=== PATIENT | male | born 1955 | race African-American/Black ===

== ENCOUNTER 2021-05-16 10:43 | Emergency (ER) | payer MEDICARE ==
[2021-05-16 10:48] VITALS: RESP 18; TEMP 97.5
[2021-05-16] MEDS ORDERED: HYDROmorphone 0.5 MG/0.5 ML SYRINGE IVP STA ×2 (10:55→12:31)
[2021-05-16] MEDS ORDERED: SODIUM CHLORIDE 0.9% 1,000 ML IV STA (10:55)
[2021-05-16] MEDS ORDERED: ONDANSETRON 4 MG/2 ML VIAL IVP STA (10:55)
[2021-05-16] MEDS ORDERED: KETOROLAC 15 MG/ML 1 ML VIAL IVP STA ×2 (10:55→12:31)
--- NOTE | 2021-05-16 11:00 | ED ---
Abdominal Pain HPI - General Chief Complaint: Abdominal Pain Stated Complaint: Nausea, Vomiting Time Seen by Provider: 05/16/21 10:49 Source: patient, RN notes reviewed Mode of arrival: ambulatory Limitations: no limitations - History of Present Illness Initial Comments: 65-year-old male presents emergency Department with chief complaint left flank pain. Patient states a sudden onset of pain this morning. Patient states is very nauseated has had multiple episodes of emesis. Patient states that the makes the pain feel better or worse she states she feels that he constantly has to move. He denies any chest pain or shortness of breath no prior abdominal surgeries no history of diverticulitis no dysuria no hematuria no diarrhea no constipation. - Related Data Home Medications Medication Instructions Recorded Confirmed Atorvastatin Calcium [Lipitor] 20 mg PO HS 05/16/21 05/16/21 Famotidine [Pepcid AC] 10 mg PO BID 05/16/21 05/16/21 metFORMIN HCL [Glucophage] 500 mg PO BID 05/16/21 05/16/21 Previous Rx's Medication Instructions Recorded Ketorolac [Toradol] 10 mg PO Q8HR #15 tab 05/16/21 Ondansetron Odt [Zofran Odt] 4 mg PO Q8HR PRN #10 tab 05/16/21 Tamsulosin [Flomax] 0.4 mg PO DAILY #7 cap 05/16/21 Allergies Allergy/AdvReac Type Severity Reaction Status Date / Time No Known Allergies Allergy Verified 05/16/21 11:46 Review of Systems ROS Statement: Those systems with pertinent positive or pertinent negative responses have been documented in the HPI. ROS Other: All systems not noted in ROS Statement are negative. Past Medical History Past Medical History: Diabetes Mellitus, Hypertension History of Any Multi-Drug Resistant Organisms: None Reported Past Surgical History: No Surgical Hx Reported Past Psychological History: No Psychological Hx Reported Smoking Status: Never smoker Past Alcohol Use History: None Reported Past Drug Use History: Marijuana General Exam Limitations: no limitations General appearance: alert, in no apparent distress Head exam: Present: atraumatic, normocephalic, normal inspection Eye exam: Present: normal appearance, PERRL, EOMI. Absent: scleral icterus, conjunctival injection, periorbital swelling ENT exam: Present: normal exam, mucous membranes moist Neck exam: Present: normal inspection. Absent: tenderness, meningismus, lymphadenopathy Respiratory exam: Present: normal lung sounds bilaterally. Absent: respiratory distress, wheezes, rales, rhonchi, stridor Cardiovascular Exam: Present: regular rate, normal rhythm, normal heart sounds. Absent: systolic murmur, diastolic murmur, rubs, gallop, clicks GI/Abdominal exam: Present: soft, tenderness, normal bowel sounds. Absent: distended, guarding, rebound, rigid Back exam: Present: CVA tenderness (L). Absent: CVA tenderness (R) Neurological exam: Present: alert, oriented X3 Course Vital Signs 05/16/21 05/16/21 10:44 13:06 Temperature 97.5 F L Pulse Rate 62 68 Respiratory 18 18 Rate Blood Pressure 161/86 120/79 O2 Sat by Pulse 96 96 Oximetry Medical Decision Making - Medical Decision Making 65-year-old presented for left flank pain. Patient has evidence of kidney stone 2 mm UVJ stone. The pain is improved. Patient will be discharged with family, antiemetics, Flomax. Patient will follow-up with urology as needed and return for any worsening changes symptoms. - Lab Data Result diagrams: 05/16/21 10:59 05/16/21 10:59 Lab Results 05/16/21 05/16/21 05/16/21 Range/Units 10:59 10:59 11:55 WBC 7.0 (3.8-10.6) k/uL RBC 4.62 (4.30-5.90) m/uL Hgb 13.7 (13.0-17.5) gm/dL Hct 41.9 (39.0-53.0) % MCV 90.6 (80.0-100.0) fL MCH 29.6 (25.0-35.0) pg MCHC 32.6 (31.0-37.0) g/dL RDW 13.7 (11.5-15.5) % Plt Count 212 (150-450) k/uL MPV 7.3 Sodium 139 (137-145) mmol/L Potassium 3.7 (3.5-5.1) mmol/L Chloride 108 H (98-107) mmol/L Carbon Dioxide 24 (22-30) mmol/L Anion Gap 7 mmol/L BUN 18 (9-20) mg/dL Creatinine 1.29 H (0.66-1.25) mg/dL Est GFR (CKD-EPI)AfAm 66 (>60 ml/min/1.73 sqM) Est GFR (CKD-EPI)NonAf 57 (>60 ml/min/1.73 sqM) Glucose 139 H (74-99) mg/dL Calcium 9.6 (8.4-10.2) mg/dL Total Bilirubin 0.7 (0.2-1.3) mg/dL AST 25 (17-59) U/L ALT 24 (4-49) U/L Alkaline Phosphatase 84 (38-126) U/L Total Protein 7.9 (6.3-8.2) g/dL Albumin 4.5 (3.5-5.0) g/dL Amylase 187 H (30-110) U/L Lipase 119 (23-300) U/L Urine Color Yellow Urine Appearance Clear (Clear) Urine pH 5.0 (5.0-8.0) Ur Specific [place] 1.022 (1.001-1.035) Urine Protein Trace H (Negative) Urine Glucose (UA) Negative (Negative) Urine Ketones Negative (Negative) Urine Blood Trace H (Negative) Urine Nitrite Negative (Negative) Urine Bilirubin Negative (Negative) Urine Urobilinogen <2.0 (<2.0) mg/dL Ur Leukocyte Esterase Moderate H (Negative) Urine RBC 1 (0-5) /hpf Urine WBC 8 H (0-5) /hpf Ur Squamous Epith Cells <1 (0-4) /hpf Urine Mucus Rare H (None) /hpf Disposition Clinical Impression: Left ureteral calculus Disposition: HOME SELF-CARE Condition: Stable Instructions (If sedation given, give patient instructions): Kidney Stones (ED) Additional Instructions: Please return to the Emergency Department if symptoms worsen or any other concerns. Prescriptions: Tamsulosin [Flomax] 0.4 mg PO DAILY #7 cap Ketorolac [Toradol] 10 mg PO Q8HR #15 tab Ondansetron Odt [Zofran Odt] 4 mg PO Q8HR PRN #10 tab PRN Reason: Nausea Is patient prescribed a controlled substance at d/c from ED?: No Referrals: Ailyn Fagan MD [Primary Care Provider] - 1-2 days
[2021-05-16 11:27] LABS: Albumin 4.5 g/dL (3.5-5.0); Calcium 9.6 mg/dL (8.4-10.2); Potassium 3.7 mmol/L (3.5-5.1); Total Bilirubin 0.7 mg/dL (0.2-1.3); Total Protein 7.9 g/dL (6.3-8.2)
[2021-05-16 11:29] LABS: HCT 41.9 % (39.0-53.0); HGB 13.7 gm/dL (13.0-17.5); MCH 29.6 pg (25.0-35.0); MCHC 32.6 g/dL (31.0-37.0); MCV 90.6 fL (80.0-100.0); Mean Platelet Volume 7.3; Platelet Count 212 k/uL (150-450); RBC 4.62 m/uL (4.30-5.90); RDW 13.7 % (11.5-15.5)
--- NOTE | 2021-05-16 11:48 | CT ---
EXAMINATION TYPE: CT abdomen pelvis wo con DATE OF EXAM: 05/16/2021 COMPARISON: None available HISTORY: Left sided abdominal pain and vomiting. CT DLP: 682.2 mGycm Automated exposure control for dose reduction was used. TECHNIQUE: Helical acquisition of images was performed from the lung bases through the pelvis. FINDINGS: LUNG BASES: Mild bilateral basal pulmonary reticulations and dependent densities. Cardiomegaly. LIVER/GB: No definite hepatic focal lesion by this nonenhanced CT scan. No radiodense gallbladder aurora culi or signs of acute cholecystitis. PANCREAS: No significant abnormality is seen. SPLEEN: No significant abnormality is seen. ADRENALS: 9 mm left adrenal nodule likely representing an adrenal adenoma or cyst, otherwise unremark able adrenals. KIDNEYS: 2 mm obstructing calculus is seen at the intravesicular portion of the left ureterovesicular junction, causing mild to moderate left-sided hydroureter and hydronephrosis. Significant left perin ephric and left perinephric fat stranding probably due to acute obstruction however acute infection c annot be excluded, please correlate clinically and with urinalysis results. 11 mm right renal cortica l calcification, possibly representing milk of calcium cyst. Suspected bilateral renal gravels. No ot her definite renal lesion identified. No right-sided hydroureter or hydronephrosis. No other urinary bladder abnormality. Prostatic concretion. Unremarkable seminal vesicles. FREE AIR: No free air is visualized RETROPERITONEAL ADENOPATHY: No pathologically enlarged PELVIC ADENOPATHY: Scattered subcentimeter bilateral inguinal and external iliac lymph nodes, nonspe cific. No pathologically enlarged pelvic lymph nodes. OSSEOUS STRUCTURES: Bilateral L5-S1 facet osteoarthropathy with grade 1 anterolisthesis of L5 over S 1. No aggressive bone lesion. BOWEL: Suspected small sliding hiatal hernia. Unremarkable nondistended stomach, duodenum and small bowel. Nonspecific wall thickening of the rectum and segments of the colon. Uncomplicated colonic div erticulosis. Normal appendix. OTHER: Fat-containing umbilical and supraumbilical hernias. Scattered arterial atherosclerotic calcif ications. No sizable ascites. IMPRESSION: 2 mm left ureterovesical junction obstructing stone with significant left periureteric and left perin ephric fat stranding, possibly due to obstruction however associated infection cannot be excluded, pl ease correlate clinically and with urinalysis results. Other incidental findings as described above.
[2021-05-16] MEDS ORDERED: TAMSULOSIN 0.4 MG CAP.ER.24H PO STA (12:31)
[2021-05-16 12:34] LABS: Appearance,Urine Clear (Clear); Bilirubin,Urine Negative (Negative); Blood,Urine Trace (Negative); Color,Urine Yellow; Glucose,Urine (UA) Negative (Negative); Ketones,Urine Negative (Negative); Leukocyte Esterase,Urine Moderate (Negative); Mucus,Urine Rare /hpf; Nitrite,Urine Negative (Negative); Protein,Urine Trace (Negative); RBC,Urine 1 /hpf (0-5); Specific Gravity,Urine 1.022 (1.001-1.035); Squamous Epithelial Cell,Urine <1 /hpf (0-4); Urobilinogen,Urine <2.0 mg/dL (<2.0); WBC,Urine 8 /hpf (0-5)
[2021-05-16 13:09] VITALS: BP 120/79; PULSE 68
[2021-05-16] MEDS ORDERED: ACET/COD 300 MG/30 MG STARTER PACK 6 TAB BTL PO STA (13:14)
[2021-05-16 13:36] LABS: Basophils # (M) 0.07 k/uL (0-0.2); Eosinophils # (M) 0.07 k/uL (0-0.7); Lymphocytes # (M) 2.87 k/uL (1.0-4.8); Monocytes # (M) 0.63 k/uL (0-1.0); Neutrophils # (M) 3.36 k/uL (1.3-7.7); Neutrophils % (M) 48 %; Nucleated Red Blood Cells 0 /100 WBC (0-0); Total Cells Counted 100
== END 2021-05-16 13:40 | disposition home or self-care (01) ==
LOC: EC 10:43
DX: N20.1 Calculus of ureter (principal); E11.9 Type 2 diabetes mellitus without complications; I10 Essential (primary) hypertension; F12.90 Cannabis use, unspecified, uncomplicated; Z79.84 Long term (current) use of oral hypoglycemic drugs; Z79.899 Other long term (current) drug therapy
CPT/HCPCS: 36415; 80053; 82150; 83690; 85025; 81001; 74176; 99284; 96374; 96375 ×2; 96376 ×2; 96361 ×2; J2405; J1885; J1170

== ENCOUNTER 2022-01-10 05:32 | Emergency (ER) | payer MEDICARE ==
[2022-01-10 05:46] VITALS: TEMP 98
--- NOTE | 2022-01-10 06:18 | ED ---
Back Pain HPI - General Chief Complaint: Back Pain/Injury Stated Complaint: lower back pain Time Seen by Provider: 01/10/22 06:02 Source: patient, RN notes reviewed Limitations: no limitations - History of Present Illness Initial Comments: Patient is a 66-year-old male presenting to the ER with a chief complaint of lower back pain. Patient states he was lifting a trailer onto the hitch when he felt a sharp pain in his lower back causing him to buckle. He was able to get himself up but has had pain since. He rates his pain 10/10 when standing or with any movements. He is in no pain while laying supine. Patient endorses associated numbness in his anterior thigh when he moves. Denies bowel/urinary incontinence. Patient has been taking ibuprofen and using icy hot and a heating pad with no relief. Patient denies any prior trauma or back injuries. - Related Data Home Medications Medication Instructions Recorded Confirmed Atorvastatin Calcium [Lipitor] 20 mg PO HS 05/16/21 05/16/21 Famotidine [Pepcid AC] 10 mg PO BID 05/16/21 05/16/21 metFORMIN HCL [Glucophage] 500 mg PO BID 05/16/21 05/16/21 Previous Rx's Medication Instructions Recorded Ketorolac [Toradol] 10 mg PO Q8HR #15 tab 05/16/21 Ondansetron Odt [Zofran Odt] 4 mg PO Q8HR PRN #10 tab 05/16/21 Tamsulosin [Flomax] 0.4 mg PO DAILY #7 cap 05/16/21 Cyclobenzaprine [Flexeril] 5 mg PO TID PRN #15 tablet 01/10/22 Ketorolac [Toradol] 10 mg PO Q8HR #15 tab 01/10/22 Allergies Allergy/AdvReac Type Severity Reaction Status Date / Time No Known Allergies Allergy Verified 01/10/22 05:35 Review of Systems ROS Statement: Those systems with pertinent positive or pertinent negative responses have been documented in the HPI. ROS Other: All systems not noted in ROS Statement are negative. Past Medical History Past Medical History: Diabetes Mellitus, Hypertension History of Any Multi-Drug Resistant Organisms: None Reported Past Surgical History: No Surgical Hx Reported Past Psychological History: No Psychological Hx Reported Smoking Status: Never smoker Past Alcohol Use History: None Reported Past Drug Use History: Marijuana General Exam Limitations: no limitations General appearance: alert, in no apparent distress Head exam: Present: atraumatic, normocephalic, normal inspection Eye exam: Present: normal appearance, PERRL, EOMI. Absent: scleral icterus, conjunctival injection, periorbital swelling ENT exam: Present: normal exam, mucous membranes moist Neck exam: Present: normal inspection. Absent: tenderness, meningismus, lymphadenopathy Respiratory exam: Present: normal lung sounds bilaterally. Absent: respiratory distress, wheezes, rales, rhonchi, stridor Cardiovascular Exam: Present: regular rate, normal rhythm, normal heart sounds. Absent: systolic murmur, diastolic murmur, rubs, gallop, clicks GI/Abdominal exam: Present: soft, normal bowel sounds. Absent: distended, tenderness, guarding, rebound, rigid Extremities exam: Present: normal inspection, full ROM, normal capillary refill. Absent: tenderness, pedal edema, joint swelling, calf tenderness Back exam: Present: normal inspection, tenderness (lumbar spine), CVA tenderness (R) Neurological exam: Present: alert, oriented X3, CN II-XII intact Psychiatric exam: Present: normal affect, normal mood Skin exam: Present: warm, dry, intact, normal color. Absent: rash Course Vital Signs 01/10/22 01/10/22 05:35 05:45 Temperature 98.3 F 98 F Pulse Rate 69 90 Respiratory 16 16 Rate Blood Pressure 135/82 140/85 O2 Sat by Pulse 98 100 Oximetry Medical Decision Making - Medical Decision Making 66-year-old male presented for low back pain x-ray read shows evidence of anterolisthesis of L5-S1, degenerative changes. Patient has no red flag symptoms. Patient be discharged in stable condition with pain control advise to do daily stretching, heat and ice return parameters were discussed. Disposition Clinical Impression: Strain of lumbar region, Lumbar radiculopathy Disposition: HOME SELF-CARE Condition: Stable Instructions (If sedation given, give patient instructions): Acute Low Back Pain (ED) Additional Instructions: Please return to the Emergency Department if symptoms worsen or any other concerns. Prescriptions: Cyclobenzaprine [Flexeril] 5 mg PO TID PRN #15 tablet PRN Reason: Muscle Spasm Ketorolac [Toradol] 10 mg PO Q8HR #15 tab Is patient prescribed a controlled substance at d/c from ED?: No Referrals: Ailyn Fagan MD [Primary Care Provider] - 1-2 days Time of Disposition: 07:47
[2022-01-10] MEDS ORDERED: KETOROLAC 15 MG/ML 1 ML VIAL IM STA (06:21)
--- NOTE | 2022-01-10 07:45 | XR ---
EXAMINATION TYPE: XR lumbosacral spine min 4V DATE OF EXAM: 01/10/2022 6:45 AM INDICATION: Patient age:Male; 66 years old; Reason for study: pain; [facility]. COMPARISON: CT abdomen and pelvis 05/16/2021. TECHNIQUE: Frontal, lateral , bilateral oblique and coned in L5-S1 lateral views of the spine. FINDINGS: There are 5 lumbar type vertebral bodies identified. No acute fracture. No evidence of loss of vertebral body height is seen. Grade 1 anterolisthesis of L5 on S1 redemonstrated. Mild degenerat sita disc disease at L5-S1 with disc space narrowing and endplate sclerosis. Mild multilevel anterior osteophytosis. Vascular sclerosis. IMPRESSION: 1. No acute process. 2. Mild multilevel degenerative disc disease. 3. Similar grade 1 anterolisthesis of L5 on S1.
[2022-01-10] MEDS ORDERED: ACET/COD 300 MG/30 MG STARTER PACK 6 TAB BTL PO STA (07:48)
[2022-01-10 08:10] VITALS: BP 131/81; PULSE 61; RESP 18
== END 2022-01-10 08:10 | disposition home or self-care (01) ==
LOC: EC 05:32
DX: S39.012A Strain of muscle, fascia and tendon of lower back, initial encounter (principal); E11.9 Type 2 diabetes mellitus without complications; I10 Essential (primary) hypertension; Z79.4 Long term (current) use of insulin; X50.0XXA Overexertion from strenuous movement or load, initial encounter
CPT/HCPCS: 99283; 72110; 96372; J1885